=== PATIENT | female | born 1980 | race Caucasian/White ===

== ENCOUNTER 2018-09-15 08:00 | Outpatient (CLI) | payer OTHER ==
[~2018-09-15 08:00] MED LIST: CELEBREX100 MG PO; NASONEX17 GM; SINGULAIR10 MG; ZYRTEC10 MG
== END 2018-09-15 08:10 | disposition home or self-care (01) ==
LOC: SONOGRAMA 08:00
DX: R10.10 Upper abdominal pain, unspecified (principal)

== ENCOUNTER 2018-12-03 10:40 | Outpatient (CLI) | payer OTHER | END 2018-12-03 10:41 | disposition home or self-care (01) | LOC: NUCLEAR 10:40 | DX: M79.622 Pain in left upper arm (principal); I87.2 Venous insufficiency (chronic) (peripheral) ==